=== PATIENT | female | born 1950 | race Caucasian/White ===

== ENCOUNTER 2017-03-31 05:49 | Day surgery (SDC) | payer OTHER ==
[~2017-03-31] VITALS: Ht 165.1 cm; Wt 93.4 kg
--- NOTE | ~2017-03-31 | O ---
[facility] [place] [address] OPERATIVE REPORT Name: DOMO NUNEZ Room #: 150-8 [facility] M..#: [id number] Admission: 03/31/17 Attend Phys: Daren Pettit MD Discharge: Date of : 54 Report #: [id number] THIS REPORT FOR: //name// CC: Misti Pettit DATE OF SERVICE: 03/31/2017 PREOPERATIVE DIAGNOSIS: Left ankle bimalleolar ankle fracture. POSTOPERATIVE DIAGNOSIS: Left ankle bimalleolar ankle fracture. PROCEDURE: Left ankle open reduction and internal fixation bimalleolar fracture. SURGEON: Daren Pettit M.D. ANESTHESIA: General. ESTIMATED BLOOD LOSS: Minimal. DRAINS: None. TOURNIQUET TIME: 45 minutes. DESCRIPTION OF PROCEDURE: The patient was brought to the operating room where she was placed under general anesthesia. Once under adequate general anesthesia, her left lower extremity was prepped and draped in a sterile manner. The extremity was elevated, exsanguinated, tourniquet placed to 300 mmHg. An 8 cm incision was then made over the distal fibula, this was dissected down through the soft tissue to the fracture site ____ hematoma was evacuated from the fracture site as well as ____ soft tissue was removed. The fracture was then reduced with a bone reduction tenaculum and a single 3.5 mm lag screw was placed across the fracture site. A lateral neutralization plate from the [employer] small fragment set was then placed with 3 screws fixation proximal and 2 screws fixation distal to the fracture site. Excellent fixation and alignment was achieved in this manner. We then proceeded medially and a 4 cm incision was made over the medial malleolus. This was dissected down through the soft tissue to the fracture site, any hematoma was evacuated and a bone reduction tenaculum was then placed across the fracture. Two 4.0 cannulated screws were then placed across the fracture site under fluoroscopic guidance. Excellent fixation and alignment was achieved in this manner. Once complete, the wound was irrigated copiously and closed with 2-0 Vicryl in the subcutaneous tissues and malik for the skin. The wound was dressed with Xeroform, 4 x 4s, and sterile soft compressive dressing with a short leg cast was placed. Tourniquet was let down approximately 45 minutes. Toes were pink and warm with good capillary refill. [address] [id number] OPERATIVE REPORT Name: DOMO NUNEZ Room #: 150-8 [facility]..#: [id number] Admission: 03/31/17 Attend Phys: Daren Pettit MD Discharge: Date of : 54 Report #: [id number] There were no complications from the procedure. The patient tolerated the procedure well and was taken to recovery room without incident. By: [id number] [id number] Daren Pettit MD /nt
[2017-03-31 16:47] VITALS: BP 161/71
[2017-03-31] MEDS ORDERED: PERCOCET 7.5-31 EACH PO (18:54)
[2017-03-31] MEDS ORDERED: ASPIRIN325 PO (18:54)
[2017-03-31 19:39] VITALS: BP 161/71
== END 2017-03-31 20:00 | disposition home or self-care (01) ==
LOC: TBA 05:49 → OR 05:49 → TBA 05:50 → OR 17:12
DX: S82.842A Displaced bimalleolar fracture of left lower leg, initial encounter for closed fracture (principal); E11.9 Type 2 diabetes mellitus without complications; Z79.82 Long term (current) use of aspirin; Z79.899 Other long term (current) drug therapy; X58.XXXA Exposure to other specified factors, initial encounter; Y93.89 Activity, other specified; Y92.89 Other specified places as the place of occurrence of the external cause; Y99.8 Other external cause status
CPT/HCPCS: 50010; 50101; 50343; 50386; 51122; 51131; 51277; 51412; 52120; 56524; 56525; 56667; 57091; 62110; 62900; 70005